=== PATIENT | female | born 1985 | race Caucasian/White ===

== ENCOUNTER 2016-06-03 00:57 | Inpatient (IN) | payer OTHER ==
[~2016-06-03] VITALS: Ht 165.1 cm; Wt 95.7 kg
[2016-06-03] MEDS ORDERED: Oxytocin 10 Unit/mL Inj IM PRN (17:00)
[2016-06-03] MEDS ORDERED: Oxytocin 30 Units/500 mL LR 30 UNITS in IV Premix 1 EACH IV PRN (17:00)
[2016-06-03] MEDS ORDERED: Sodium Chloride LOK Flush 10 mL Syringe IVFLUSH PRN (17:00)
[2016-06-03] MEDS ORDERED: Methylergonovine 0.2 mg/mL Inj IM PRN (17:00)
[2016-06-03] MEDS ORDERED: Carboprost 250 mCg/mL Inj IM PRN (17:00)
[2016-06-03] MEDS ORDERED: Hemorrhage Kit, Post Partum XX ONE (17:00)
[2016-06-03 17:03] LABS: Mean Corpuscular Hemoglobin 31.6 pg (27.0-35.0)
[2016-06-04] MEDS: Lactated Ringer's 1,000 ML IV PRN ×2 (03:42→11:53)
[2016-06-04] MEDS: Misoprostol 25 mCg/0.25 Tablet VAGINAL SCH ×3 (07:42→15:44)
[2016-06-04] MEDS ORDERED: Misoprostol 25 mCg/0.25 Tablet VAGINAL ONE (16:15)
--- NOTE | 2016-06-04 22:44 | PCM.PNOBIP ---
Subjective Date of Service Jun 04, 2016 Delivery plan: Spontaneous Vaginal Delivery Subjective Induction for postdates and gestational HTN. Isabel and slowly changing cervix. Still with bishops less than six. Pain Management: Good Pain Control Gastrointestinal: Good Appetite Activity: Ambulating Independently Labs Laboratory Tests 06/03/16 16:30: White Blood Count 10.2, Red Blood Count 3.70, Hemoglobin 11.7, Hematocrit 34.4, Mean Corpuscular Volume 93.0, Mean Corpuscular Hemoglobin 31.6, Mean Corpuscular Hemoglobin Concent 34.0, Red Cell Distribution Width 12.8, Platelet Count 189 Exam Vital Signs Vital Signs Contraction frequency in minutes: MVUs: Vital Signs: VS reviewed, stable Heart Tracings Heart Tones Baseline bpm Heart Rate Variability: Moderate Heart Rate Accelleration: Present Heart Rate Category: I Tocometry/IUPC Contraction frequency in minutes:1-3 MVUs: Sterile Vaginal Exam Cervical Dilation: 2 cms Cervical Effacement: 30 % Station: -3 Exam Abdomen: Abdomen soft Extremities: No cords Heart: Exam Unremarkable General: Alert, Oriented X3 OB Intrapartum Assessment/Plan Problems: (1) Gestational hypertension affecting first Plan: Cytotec x 3 doses today. Wait on pitocin until bishops greater than 6. Status: Acute ICD Code: O13.9 Intrapartum plan: Continue expected management Intrapartum Pain Management: May have epidural when desired Pain Evaluation: Adequate Pain Control Jay Bowens MD Jun 04, 2016 22:44
[2016-06-05] MEDS ORDERED: Misoprostol 25 mCg/0.25 Tablet VAGINAL ONE (09:10)
[2016-06-05] MEDS ORDERED: Lactated Ringer's 1,000 ML IV SCH ×2 (19:27→23:26)
[2016-06-05] MEDS ORDERED: Lactated Ringer's 500 ML IV ONE (19:27)
[2016-06-05] MEDS ORDERED: Ondansetron 2 mg/mL 2 mL Inj IVPUSH PRN (19:30)
[2016-06-05] MEDS ORDERED: fentaNYL 2 mCg/mL-Bupiv 0.125% 100 ML EPIDURAL SCH (19:30)
[2016-06-05] MEDS ORDERED: Atropine 1 mg/10 mL (Code) Syringe IVPUSH PRN (19:30)
[2016-06-05] MEDS ORDERED: EPHEDrine Sulfate 50 mg/mL Inj IVPUSH PRN (19:30)
[2016-06-05] MEDS ORDERED: HYDROcodone-APAP 5-325 mg Tablet PO PRN (23:30)
[2016-06-05] MEDS ORDERED: Witch Hazel-Glycerin Pads TOPICAL PRN (23:30)
[2016-06-05] MEDS ORDERED: LANOlin HPA 7 Gm Ointment TOPICAL PRN (23:30)
[2016-06-05] MEDS ORDERED: Oxytocin 10 Unit/mL Inj IM PRN (23:30)
[2016-06-05] MEDS ORDERED: Benzocaine (Dermoplast) 20% 60 Gm Spray TOPICAL PRN (23:30)
[2016-06-05] MEDS ORDERED: Hemorrhage Kit, Post Partum XX ONE (23:30)
[2016-06-05] MEDS ORDERED: Methylergonovine 0.2 mg/mL Inj IM PRN (23:30)
[2016-06-05] MEDS ORDERED: oxyCODONE-Acetamin 5-325 mg Tablet PO PRN (23:30)
[2016-06-05] MEDS ORDERED: Carboprost 250 mCg/mL Inj IM PRN (23:30)
[2016-06-05] MEDS ORDERED: Oxytocin 30 Units/500 mL LR 30 UNITS in IV Premix 1 EACH IV PRN (23:30)
[2016-06-06] MEDS ORDERED: Sodium Chloride LOK Flush 10 mL Syringe IVFLUSH SCH (00:30)
--- NOTE | 2016-06-06 03:26 | OP ---
[address] [address] OPERATIVE REPORT PATIENT: STELLA PEDERSEN : 1985 MR#: [id number] ADMIT: 06/03/2016 JOB ID: [id number] DATE OF SURGERY: 06/05/2016 at 10:59 p.m. SURGEON: Jay Bowens MD PREOPERATIVE DIAGNOSIS(ES): This is a 31-year-old, , at 41 weeks and 2 days estimated gestational age. POSTOPERATIVE DIAGNOSIS(ES): This is a 31-year-old, , at 41 weeks and 2 days estimated gestational age. Delivered a vigorous female with Apgars of 9 and 9 by normal vaginal delivery. The infant's weight is not known at the time of this dictation. The patient presented for induction on evening June 03, 2016. She was given Cervidil to start with and has started having some minor contractions, but no real cervical change until the end of that dose. She had been closed and changed to 1.5 cm. She was still posterior. Cytotec was started x3 doses. Again, the patient had only minor contractions and very little cervical change, but by 10:30 this morning she was 2 cm and 50% effaced, with good application of the presenting vertex. I artificially ruptured her membranes and this resulted in clear fluid. She tolerated all this well. At this point, she started to slowly pickle solution maker her contractions and progressed in normal fashion throughout the day until she was complete at about 8:50 p.m. During this stage of labor, she received an epidural, which was highly effective. Patient was allowed to labor down until approximately at 10:40. She pushed for about 20 minutes and delivered across a second degree midline perineal laceration. It required 3-0 Vicryl suture and this was repaired in the usual fashion. The patient's uterus went through several episodes of becoming quite boggy. She had 500 cc of estimated blood loss. Pitocin was run at full strength. This was effective at preventing additional hemorrhage. The patient had no cervical tears or rectal tears. Her uterus was finally found to be firm. The counts were correct x2. There were no other complications of delivery. Of note is that the placenta had delivered approximately 7 minutes after the infant delivered and was delivered spontaneously and intact with a 3-vessel cord. The patient was in excellent condition following delivery and the infant remained on her chest for .
[2016-06-06 07:02] LABS: Mean Corpuscular Hemoglobin 31.3 pg (27.0-35.0); Mean Corpuscular Volume 93.4 fL (81-100)
--- NOTE | 2016-06-06 17:40 | PCM.PNOBPP ---
Subjective Date of Service Jun 06, 2016 Post : Spontaneous Vaginal Delivery Subjective Patient had a post hemorrhage early this morning. I was called. The patient was unconscious on the toilet with her nurse holding her. We gave her methergine, cytotec and pitocin. Her uterus became firm. No bleeding after this but may have lost another liter on top of her previous 500 ml. In condition later today. HCT initially not too bad. Lochia: Normal Pain Management: Good Pain Control Gastrointestinal: Good Appetite Postop Activity: Ambulating Independently Labs Laboratory Tests 06/06/16 06:45: White Blood Count 14.7, Red Blood Count 3.19, Hemoglobin 10.0, Hematocrit 29.8, Mean Corpuscular Volume 93.4, Mean Corpuscular Hemoglobin 31.3, Mean Corpuscular Hemoglobin Concent 33.6, Red Cell Distribution Width 12.6, Platelet Count 169 Exam Vital Signs Vital Signs: VS reviewed, stable Exam Abdomen: Fundus firm Perineum: Intact : Voiding without difficulty Extremities: No cords Lungs: Clear to Auscultation Heart: Exam Unremarkable General: Alert, Oriented X3 OB Post Assessment/Plan Problems: (1) Status post normal vaginal delivery Status: Acute ICD Code: [id number] Pain Evaluation: Adequate Pain Control Post plan: Continue routine post care, Discharge home tomorrow Jay Bowens MD Jun 06, 2016 17:40
--- NOTE | 2016-06-07 08:42 | PCM.DC.OB ---
Obstetrical Discharge Summary Date of Service Jun 07, 2016 Date of hospital admission Jun 03, 2016 at 15:10 Date of Discharge: Jun 07, 2016 Providers Admitting Physician: Jay Bowens MD Primary Care Physician: Jay Bowens MD Attending Physician: Jay Bowens MD Problems: (1) Status post normal vaginal delivery Status: Acute ICD Code: [id number] Consultations None Invasive procedures NVD after induction Date of Procedure: Jun 05, 2016 Hospital Course: Patient presented for induction. After two days, went into labor. Delivered without incident...but had post hemorrhage hours later. Recovered well however. Follow-up plan See me in two months. Discharge Diet: No restrictions Discharge Activity-General: Pelvic Rest for 6 weeks, Try not to overdue, Balance rest and activity, Activity as energy allows, No lifting >15 pounds for 2 weeks Jay Bowens MD Jun 07, 2016 08:42
--- NOTE | 2016-06-07 08:44 | PCM.DIOB ---
Obstetrical Disch Instruction Date of Service: Jun 07, 2016 Dates of Hospitalization Date of Hospital Admission Jun 03, 2016 at 15:10 Providers Admitting Physician: Jay Bowens MD Primary Care Physician: Jay Bowens MD Attending Physician: Jay Bowens MD Discharge Diagnosis Problems: (1) Status post normal vaginal delivery Status: Acute ICD Code: [id number] Diet Discharge Diet: No restrictions Activity Discharge Activity-General: Pelvic Rest for 6 weeks, Activity as energy allows , No lifting >10 pounds for 4-6 weeks Dressing and Incisional Care Hygiene: May shower, Perineal care, Sitz bath, Dermoplast spray, Witch Nola pads Follow Up Plan Follow-up Provider (F9): Jay Bowens MD Follow-up appointment: Weeks (8) Call your provider for: Fever or Chills, Heavy vaginal bleeding, Vaginal discomfort, Red painful breasts Jay Bowens MD Jun 07, 2016 08:44
[2016-06-07 09:54] VITALS: BP 133/66; PULSE 96; RESP 18
[2016-06-07] MEDS ORDERED: Methylergonovine 0.2 mg/mL Inj ONE (10:48)
== END 2016-06-07 10:49 | disposition home or self-care (01) | DRG 774 ==
LOC: FBC 15:10
PROVIDERS: ADMIT Family Medicine; ATTEND Family Medicine
PROC: 3E0P7GC Introduction of Other Therapeutic Substance into Female Reproductive, Via Natural or Artificial Opening (ICD-10-PCS; 2016-06-03)
PROC: 10907ZC Drainage of Amniotic Fluid, Therapeutic from Products of Conception, Via Natural or Artificial Opening (ICD-10-PCS; 2016-06-05)
PROC: 10E0XZZ Delivery of Products of Conception, External Approach (ICD-10-PCS; principal; 2016-06-06)
PROC: 0KQM0ZZ Repair Perineum Muscle, Open Approach (ICD-10-PCS; 2016-06-06)
DX: O48.0 Post-term pregnancy (principal); O72.2 Delayed and secondary postpartum hemorrhage; Z3A.41 41 weeks gestation of pregnancy; Z37.0 Single live birth; O13.4 Gestational [pregnancy-induced] hypertension without significant proteinuria, complicating childbirth; O70.1 Second degree perineal laceration during delivery